=== PATIENT | female | born 1960 | race African-American/Black ===

== ENCOUNTER → 2019-07-03 | Day surgery (SDC) | payer OTHER ==
[2019-06-28 17:36] LABS: BASOPHILS % 0.6 % (0.0-1.0); EOSINOPHILS # (AUTO) 0.1 (0.0-0.4); EOSINOPHILS % 2.1 % (0.0-6.0); HEMATOCRIT 36.1 % (34.2-44.1); HEMOGLOBIN 11.6 g/dL (12.0-16.0); LYMPHOCYTES # (AUTO) 3.4 (1.0-3.2); MEAN CORPUSCULAR HEMOGLOBIN 25.7 pg (28-32); MEAN CORPUSCULAR HGB CONC 32.1 g/dL (31-35); MEAN CORPUSCULAR VOLUME 79.9 fL (81-99); MONOCYTES # (AUTO) 0.6 (0.2-0.8); MONOCYTES % 9.4 % (4.4-11.3); NEUTROPHILS # (AUTO) 2.4 (2.1-6.9); NEUTROPHILS % 35.7 % (38.7-80.0); PLATELET COUNT 251 x10e3/uL (140-360); RED BLOOD COUNT 4.52 x10e6/uL (3.6-5.1); RED CELL DISTRIBUTION WIDTH 15.7 % (11.7-14.4)
[~2019-07-03] MED LIST: ASPIR 8181 MG PO; ATORVASTATIN CA20 MG PO; BACLOFEN10 MG PO; BASAGLAR K100 UNIT/1 SC; BUSPIRONE HCL5 MG PO; DEXMEDETOMIDINE HCL 2 ML ONE; DILANTIN100 MG PO; DIVALPROEX SOD500 MG PO; FAMOTIDINE20 MG PO; FUROSEMIDE40 MG PO; GABAPENTIN400 MG PO; GLUCAGON FOR INJ 1 MG VIAL ONE; HYOSCYAMINE 0.125 MG TAB ONE; LIDOCAINE HCL 2% LOCAL INJ 5 ML SDV VIAL INJ ONE; LINZESS72 MCG PO; LISINOPRIL2.5 MG PO; METOCLOPRAMIDE HCL 10 MG/2ML VIAL ONE; METOPROLOL TART25 MG PO; NORCO 10-325 T1 EACH PO; PHENYLEPHRINE HCL 1% 10 MG/ML VIAL ONE; POTASSIUM CHLO20 ME1 PO; PROPOFOL IV EMULSION 10 MG/ML 20 ML VIAL ONE; RISPERDAL1 MG PO; SIMETHICONE 40 MG/0.6 ML BTL ONE; SODIUM CHLORIDE 0.9% 100 ML ONE
[2019-07-03 09:05] VITALS: BP 108/74
--- NOTE | 2019-07-03 12:25 | Operative Report ---
DATE OF PROCEDURE: 07/03/2019 SURGEON: Te Clements MD PROCEDURES: EGD with esophageal dilatation and biopsies, and a colonoscopy with polypectomy. INDICATIONS FOR EGD: Dysphagia, heartburn, bloating. INDICATIONS FOR COLONOSCOPY: Colorectal cancer screening, constipation, history of bright red blood per rectum. MEDICATIONS: The patient was done under MAC, please see anesthesiologist's note. PROCEDURE IN DETAIL: With the patient in left lateral decubitus position, the flexible fiberoptic Olympus gastroscope was introduced into the esophagus under direct visualization without any difficulty. There was some patchy erythema noted in distal esophagus. A mild stricture was noted at the GE junction, that was dilated to size 52-Mong[place] Ron. The scope was then advanced with ease into the stomach. Mucosa overlying the antrum and the body revealed some patchy erythema and low-grade to moderate edema, and biopsies were obtained, sent to stain for H. pylori. Pylorus was of normal contour and shape, it was intubated with ease and the scope was advanced all the way to the second portion of the duodenum. The scope was then withdrawn slowly, mucosa overlying the proximal second portion and the duodenal bulb appeared to be within normal limits. The scope was then withdrawn back into the stomach and retroflexed, mucosa overlying the fundus and cardia appeared to be within normal limits. The scope was then straightened out, it was subsequently withdrawn. The patient tolerated the procedure well. IMPRESSION: 1. Distal esophagitis, mild. 2. Esophageal stricture GE junction, dilated to size 52-Mong[place] Ron. 3. Gastritis, biopsied, biopsies sent to stain for H. pylori. PLAN: 1. Follow up histology. 2. Initiate Protonix 40 mg one p.o. q.a.m. a.c. DESCRIPTION OF PROCEDURE: The patient was then turned around after adequate lubrication of the anal canal, a flexible fiberoptic Olympus colonoscope was inserted into the rectum with ease and advanced all the way to the cecum. There was some minimal retained stool in the colon, but visualization was fair. The scope was then withdrawn slowly, whatever was visualized the mucosa overlying the cecum appeared to be within normal limits. A minute polyp was removed per the cold biopsy forceps from the proximal ascending colon. The rest of the ascending, transverse, descending, sigmoid, and rectum grossly appeared to be within normal limits. The scope was then retroflexed into the distal rectum and small internal hemorrhoids were noted, none of which was actively bleeding. The scope was then straightened out, it was subsequently withdrawn. The patient tolerated the procedure well. IMPRESSION: 1. Ascending colon polyp, removed per cold biopsy forceps. 2. Internal hemorrhoids, none actively bleeding. PLAN: 1. Followup histology. 2. Initiate high-fiber, low-fat diet. 3. Initiate high-fiber supplement. 4. The patient might benefit from a followup colonoscopy in 5 years. 5. We will check TSH. Te Clements MD [facility] [place]/MOD[facility] /[id number] cc: Wade Arredondo MD
== END | disposition home or self-care (01) ==
LOC: OR 05:14
PROVIDERS: ATTEND Internal Medicine Gastroenterology
DX: K29.50 Unspecified chronic gastritis without bleeding (principal); D12.2 Benign neoplasm of ascending colon; K22.2 Esophageal obstruction; K20.9 Esophagitis, unspecified; B96.81 Helicobacter pylori [H. pylori] as the cause of diseases classified elsewhere; K59.09 Other constipation; K64.8 Other hemorrhoids; E11.9 Type 2 diabetes mellitus without complications; I10 Essential (primary) hypertension; E03.9 Hypothyroidism, unspecified; R56.9 Unspecified convulsions; J45.909 Unspecified asthma, uncomplicated; I25.10 Atherosclerotic heart disease of native coronary artery without angina pectoris; E78.00 Pure hypercholesterolemia, unspecified; I25.2 Old myocardial infarction; F41.9 Anxiety disorder, unspecified; F32.9 Major depressive disorder, single episode, unspecified; Z88.6 Allergy status to analgesic agent; Z88.0 Allergy status to penicillin; Z88.8 Allergy status to other drugs, medicaments and biological substances; Z01.810 Encounter for preprocedural cardiovascular examination; Z01.812 Encounter for preprocedural laboratory examination; Z11.59 Encounter for screening for other viral diseases; Z79.82 Long term (current) use of aspirin; Z79.4 Long term (current) use of insulin; Z68.37 Body mass index [BMI] 37.0-37.9, adult; Z98.61 Coronary angioplasty status
CPT/HCPCS: 36415 ×2; 43239; 43450; 45380; 82948; 84443; 85025; 87635; 93005; J1610; J2001; J2370; J2704; J2765; J7050